=== PATIENT | female | born 1955 ===

== ENCOUNTER → 2020-07-04 | Outpatient (CLI) | payer MEDICARE ==
[~2020-07-04] MED LIST: Cipro500 MG PO; ESCI20; Flagyl500 MG PO; Flonase 0.05% N16 GM; GABA100 PO; LEVA.63IS; LOSA25; LOSA50 PO; LOSHYD100 PO; Norco 5-325 Ta1 EACH PO; PRAM.125; PRAZ1; Zofran4 MG PO
== END | disposition home or self-care (01) ==
LOC: EDSTATUS 10:21 → LAB SHORT 14:26 → LAB 14:26
DX: E87.6 Hypokalemia (principal)
CPT/HCPCS: 84133

== ENCOUNTER → 2020-08-04 | Outpatient (CLI) | payer MEDICARE | END | disposition home or self-care (01) | LOC: LAB 10:50 → LAB SHORT 10:50 | PROVIDERS: Nurse Practitioner Family | DX: E87.6 Hypokalemia (principal) | CPT/HCPCS: 81050; 84133 ==

== ENCOUNTER 2021-07-09 13:08 | Day surgery (SDC) | payer MEDICARE ==
[~2021-07-09] VITALS: Ht 160 cm; Wt 95.2 kg
[2021-07-09] MEDS ORDERED: KLOR-CON 1010 ME1 PO (13:52)
[2021-07-09] MEDS ORDERED: Robaxin750 MG PO (13:52)
[2021-07-09] MEDS ORDERED: 1/2 NS 250ml250 ML (13:52)
== END 2021-07-09 15:03 | disposition home or self-care (01) ==
LOC: ORSCSDS 13:08
PROVIDERS: Student in an Organized Health Care Education/Training Program
PROC: 0DB48ZX Excision of Esophagogastric Junction, Via Natural or Artificial Opening Endoscopic, Diagnostic (ICD-10-PCS; principal; 2021-07-09 14:30)
DX: K74.60 Unspecified cirrhosis of liver (principal); I10 Essential (primary) hypertension; J45.909 Unspecified asthma, uncomplicated; F32.A Depression, unspecified; K44.9 Diaphragmatic hernia without obstruction or gangrene; G47.33 Obstructive sleep apnea (adult) (pediatric); K76.6 Portal hypertension; K31.89 Other diseases of stomach and duodenum; E66.9 Obesity, unspecified; Z68.37 Body mass index [BMI] 37.0-37.9, adult; Z79.899 Other long term (current) drug therapy
CPT/HCPCS: 88305; J0330; J0461; J2405; J2704; J7120

== ENCOUNTER → 2022-03-14 | Outpatient (CLI) | payer MEDICARE ==
[~2022-03-14] MED LIST changes: +1/2 NS 250ml250 ML; +KLOR-CON 1010 ME1 PO; +Robaxin750 MG PO
[2022-03-14 19:40] LABS: Appearance, Urine Clear (Clear); Bilirubin, Urine Neg (Neg); Blood, Urine Neg (Neg); Color, Urine Amber (P-Yellow); Glucose Qualitative, Urine Neg (Neg); Ketones, Urine Neg (Neg); Leukocyte Esterase, Urine Neg (Neg); Nitrite, Urine Neg (Neg); Protein, Urine Neg (Neg); Urobilinogen, Urine 2+ (Normal); pH, Urine 6.5 (5.0-8.0)
== END | disposition home or self-care (01) ==
LOC: LAB SHORT 10:27 → LAB 10:27
PROVIDERS: Nurse Practitioner Family
DX: K74.60 Unspecified cirrhosis of liver (principal); E87.6 Hypokalemia; R10.9 Unspecified abdominal pain
CPT/HCPCS: 81003

== ENCOUNTER → 2022-03-25 | Outpatient (CLI) | payer MEDICARE ==
[2022-03-25 13:17] LABS: Appearance, Urine Clear (Clear); Bilirubin, Urine Neg (Neg); Blood, Urine Neg (Neg); Color, Urine Amber (P-Yellow); Glucose Qualitative, Urine Neg (Neg); Ketones, Urine Neg (Neg); Leukocyte Esterase, Urine Neg (Neg); Nitrite, Urine Neg (Neg); Protein, Urine Neg (Neg); Urobilinogen, Urine 1+ (Normal)
== END | disposition home or self-care (01) ==
LOC: LAB 09:30 → LAB SHORT 09:30
PROVIDERS: Nurse Practitioner Family
DX: K74.60 Unspecified cirrhosis of liver (principal); E87.6 Hypokalemia; R10.9 Unspecified abdominal pain
CPT/HCPCS: 81003

== ENCOUNTER 2022-04-02 09:59 | Emergency (ER) | payer MEDICARE ==
[~2022-04-02] VITALS: Ht 167.6 cm; Wt 92.1 kg
[2022-04-02] MEDS ORDERED: Robaxin750 MG PO ×2 (12:34→12:46)
== END 2022-04-02 12:54 | disposition home or self-care (01) ==
LOC: ER 09:59
DX: S39.012A Strain of muscle, fascia and tendon of lower back, initial encounter (principal); Z79.899 Other long term (current) drug therapy; Z88.0 Allergy status to penicillin; Z88.2 Allergy status to sulfonamides; Z88.8 Allergy status to other drugs, medicaments and biological substances; X58.XXXA Exposure to other specified factors, initial encounter
CPT/HCPCS: A9270; J1885

== ENCOUNTER 2022-06-07 11:37 | Day surgery (SDC) | payer MEDICARE ==
[~2022-06-07] VITALS: Ht 157.5 cm; Wt 89.1 kg
--- NOTE | 2022-06-07 13:55 | NUR ---
06/07/22 1355 Ming Jean ROPIVACAINE 0.5% 30 MLS MIXED & VERIFIED PER ORDER W/ EPI 0.15 ML (1MG/ML) TO MAKE ROPIVACAINE 0.5% 1:200,000 FOR INJECTION AT OPSITE BY DR DAVILA. 30 MLS INJECTED.
== END 2022-06-07 15:45 | disposition home or self-care (01) ==
LOC: ORSCSDS 11:37
PROVIDERS: Podiatrist Foot & Ankle Surgery
PROC: 0SGJ04Z Fusion of Left Tarsal Joint with Internal Fixation Device, Open Approach (ICD-10-PCS; principal; 2022-06-07 13:15)
DX: M21.612 Bunion of left foot (principal); M77.42 Metatarsalgia, left foot; M79.672 Pain in left foot; I10 Essential (primary) hypertension; J45.909 Unspecified asthma, uncomplicated; G47.33 Obstructive sleep apnea (adult) (pediatric); I25.10 Atherosclerotic heart disease of native coronary artery without angina pectoris; K74.60 Unspecified cirrhosis of liver; E66.9 Obesity, unspecified; Z68.35 Body mass index [BMI] 35.0-35.9, adult; F32.A Depression, unspecified; Z79.899 Other long term (current) drug therapy
CPT/HCPCS: C1713; J0171; J1100; J1885; J2250; J2405; J2704; J2795; J3010; J7120

== ENCOUNTER 2022-08-15 17:00 | Emergency (ER) | payer MEDICARE ==
[~2022-08-15] VITALS: Ht 157.5 cm; Wt 94.3 kg
[2022-08-15 18:45] VITALS: BP 197/108
== END 2022-08-15 20:08 | disposition home or self-care (01) ==
LOC: ER 17:00
DX: M25.551 Pain in right hip (principal); M54.50 Low back pain, unspecified; G89.29 Other chronic pain; K74.60 Unspecified cirrhosis of liver; Z88.0 Allergy status to penicillin; Z88.2 Allergy status to sulfonamides; Z88.8 Allergy status to other drugs, medicaments and biological substances; Z88.1 Allergy status to other antibiotic agents; Z79.899 Other long term (current) drug therapy
CPT/HCPCS: 96372; 99283-25; A9270; J1885